=== PATIENT | male | born 1970 | race Caucasian/White ===

== ENCOUNTER 2019-01-27 12:59 | Emergency (ER) | payer SELFPAY ==
[~2019-01-27] VITALS: Ht 152.4 cm; Wt 57.2 kg
[2019-01-27 13:10] VITALS: BP 109/72; Ht 152.4 cm; Wt 57.2 kg
== END 2019-01-27 14:03 | disposition home or self-care (01) ==
LOC: ED 12:59
DX: N39.0 Urinary tract infection, site not specified (principal); K40.20 Bilateral inguinal hernia, without obstruction or gangrene, not specified as recurrent; F17.200 Nicotine dependence, unspecified, uncomplicated; Z71.6 Tobacco abuse counseling; Z88.0 Allergy status to penicillin
CPT/HCPCS: 99406